=== PATIENT | male | born 1975 | race Hispanic/Latino ===

== ENCOUNTER → 2024-06-16 10:26 | Outpatient (CLI) | payer OTHER, SELFPAY ==
[2024-06-16 18:48] LABS: Add Manual Diff / Slide Review NO; Basophils Absolute Auto 0 /uL (0-100); Basophils Percent Auto 0.5 % (0-2); Eosinophils Absolute Auto 100 /uL (0-450); Eosinophils Percent Auto 1.4 % (2-4); Lymphocytes Absolute Auto 2100 /uL (1100-4500); Lymphocytes Percent Auto 28.1 % (25-40); Mean Corpuscular HGB Conc 33.3 % (30-36); Monocytes Absolute Auto 800 /uL (0-900); Monocytes Percent Auto 11.2 % (3-14); Neutrophils Absolute Auto 4400 /uL (1500-7000); Neutrophils Percent Auto 58.8 % (50-75); Platelet Count 235 X10^3/uL (150-400); Red Blood Cell Count 4.24 X10^6/uL (4.5-5.9); Red Cell Distribution Width 12.5 % (11.6-14.8); White Blood Cell Count 7.5 X10^3/uL (4.5-11.0)
[2024-06-16 18:59] LABS: Alanine Aminotransferase 33 IU/L (<50); Albumin 4.5 g/dL (3.5-5.0); Albumin Globulin Ratio 1.6 (1.0-2.8); Alkaline Phosphatase 69 U/L (38-126); Aspartate Aminotransferase 99 IU/L (17-59); BUN Creatinine Ratio 18.7 (6-22); Bilirubin Total 1.1 mg/dL (0.2-1.3); Blood Urea Nitrogen 17 mg/dL (9-20); Calcium 9.2 mg/dL (8.4-10.2); Carbon Dioxide 25 mmol/L (22-32); Chloride 105 mmol/L (98-107); Cholesterol 191 mg/dL (140-199); Estimated Glomerular Filt Rate > 60 mL/min (>60); Globulin 2.9 g/dL (1.7-4.1); Glucose 115 mg/dL (70-100); HDL Cholesterol 58 mg/dL (40-60); HEMOLYSIS 29 (0-50); LDL Cholesterol Calculated 108 mg/dL (<100); Potassium 4.2 mmol/L (3.4-5.1); Sodium 138 mmol/L (137-145); Total Protein 7.4 g/dL (6.3-8.2); Triglycerides 127 mg/dL (35-150)
[2024-06-16 19:24] LABS: Thyroid Stimulating Hormone 0.835 uIU/mL (0.47-4.68)
== END ==
PROVIDERS: PCP Family Medicine; Visit Provider Family Medicine
DX: Z13.6 Encounter for screening for cardiovascular disorders (principal); Z13.29 Encounter for screening for other suspected endocrine disorder; Z13.0 Encounter for screening for diseases of the blood and blood-forming organs and certain disorders involving the immune mechanism; Z13.1 Encounter for screening for diabetes mellitus
CPT/HCPCS: 80053; 80061; 84443; 85025

== ENCOUNTER 2024-07-27 08:42 | Day surgery (SDC) | payer OTHER, SELFPAY ==
[2024-07-27 09:26] VITALS: BP 129/80; PULSE 58; RESP 16; TEMP 36.1; O2SAT 99
[2024-07-27] MEDS: LACTATED RINGERS 1,000 ML 42 ML IV (09:36)
--- NOTE | 2024-07-27 09:36 | PM.HP.IH.1 ---
History of Present Illness History of Present Illness Date Patient Seen: 07/27/24 Chief complaint: Screening Colonoscopy [facility] Medical History (Updated 06/30/24 @ 16:51 by Nichole Haider MD) Seasonal allergies Alcohol use Preglaucoma Elevated blood pressure reading Surgical History (Updated 06/12/24 @ 18:15 by Renee Sher) Anesthesia S/P appy (~2004) Family History (Updated 06/12/24 @ 18:16 by Renee Sher) Father Lymphoma Cancer Diabetes mellitus Mother Lung cancer Social History Smoking Status: Never smoker alcohol intake: current additional social history: OI: 1 yr from [employer] tob: none 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 exercise: not currently PMHX: elevated BPs in the past preglaucoma* eye exam* 6 months ago -- just monitoring allergies PSHx: appy in his 20s ALL: none MEDS: none FHX: GF with CVA 2 sisters -NA cancer: mom stage 4 lung cancer -- in remission dad -- lymphoma/ bone cancer dad-- DM2, glaucoma last Td in 2020 due to dog bite 05/2024 Meds Home Medications and Allergies Home Medications Medication Instructions Recorded Confirmed Type sodium,potassium,mag sulfates 17.5 See Rx Instructions PO .COMPLEX 06/24/24 06/30/24 Rx gram-3.13 gram-1.6 gram oral soln #354 mL (Suprep Bowel Prep Kit) Allergies Allergy/AdvReac Type Severity Reaction Status Date / Time No Known Drug Allergies Allergy Verified 07/27/24 09:20 Exam Vital Signs (past 8 hours): - 07/27/24 09:26 Temperature 97.0 F L Pulse Rate 58 L Respiratory Rate 16 Blood Pressure 129/80 Pulse Oximetry 99 Oxygen Delivery Method Room Air Oxygen Delivery Method Room Air Narrative Exam Narrative: Oropharynx free of lesions Chest clear to auscultation percussion Cardiac exam reveals no S3 or murmur Assessment & Plan Assessment & Plan narrative: For screening colonoscopy. Risks, benefits, alternatives have been explained. Time-Based Coding :: [TOTAL MINUTES] spent with patient and on the chart (including review of chart, obtaining history, exam, reviewing outside data, placing orders, documenting exam and treatment plan, and counseling patient) on [DATE]. [employer] Document charge(s): No
--- NOTE | 2024-07-27 09:37 | PM.OP.COLON ---
Operative Date/Time/Diagnoses Date of procedure: 07/27/24 Time of procedure: 10:45 Pre-op diagnosis: See indication and findings Post-op diagnosis: same Procedure & Clinicians Same procedure as scheduled: Yes Indications: For screening colonoscopy Surgeon: Beena Quinones Procedure Notes Procedure in detail: After informed consent was obtained the patient was placed in left lateral decubitus position. The video colonoscope was introduced the rectum slowly advanced cecum. Preparation was good. On slow withdrawal mucosa was carefully examined. The scope was removed. The patient tolerated procedure well. Blood loss none Complications none Sedation mac Findings 1. Normal colonoscopy to cecum Patient should have follow-up colonoscopy in 10 years
[2024-07-27 10:48] VITALS: BP 123/72; PULSE 83; RESP 20; TEMP 36.3; O2SAT 95
[2024-07-27 11:00] VITALS: BP 120/82; PULSE 76; RESP 14; TEMP 36.1; O2SAT 94
== END 2024-07-27 11:11 | disposition home or self-care (01) ==
PROVIDERS: PCP Family Medicine; Referring Provider Internal Medicine Gastroenterology; Visit Provider Internal Medicine Gastroenterology
PROC: 0DJD8ZZ Inspection of Lower Intestinal Tract, Via Natural or Artificial Opening Endoscopic (ICD-10-PCS; CPT 45378; principal; 2024-07-27 10:00)
DX: Z12.11 Encounter for screening for malignant neoplasm of colon (principal)
CPT/HCPCS: 45378; J2405; J2704

== ENCOUNTER → 2024-11-20 11:23 | Outpatient (CLI) | payer OTHER, SELFPAY ==
--- NOTE | 2024-11-20 11:26 | DI.US.S_ITS ---
PROCEDURE: US EXTREMITY NONVASC LOWER RT INDICATIONS: fb in R medial thigh with swelling TECHNIQUE: Real-time scanning was performed of the right thigh , with image documentation. COMPARISON: None. FINDINGS: Targeted ultrasound at the area of clinical concern at the posterior right thigh. There is a linear echogenic foreign body measuring approximately 3 cm. This is located 0.7 cm to the skin. IMPRESSION: Right posterior thigh linear foreign body measuring 3 cm. Dictated by: Jerad Green M.D. on 11/20/2024 at 20:48 Approved by: Jerad Green M.D. on 11/20/2024 at 20:50
== END ==
PROVIDERS: PCP Family Medicine; Referring Provider Physician Assistant Medical; Visit Provider Physician Assistant Medical
DX: M79.5 Residual foreign body in soft tissue (principal)
CPT/HCPCS: 76882

== ENCOUNTER → 2025-01-11 14:01 | Outpatient (CLI) | payer OTHER, SELFPAY ==
[2025-01-11 19:00] LABS: HEMOLYSIS < 15 (0-50); Iron 164 ug/dL (49-181)
[2025-01-11 19:01] LABS: Alanine Aminotransferase 26 IU/L (<50); Albumin 4.2 g/dL (3.5-5.0); Albumin Globulin Ratio 1.4 (1.0-2.8); Alkaline Phosphatase 80 U/L (38-126); Globulin 3.0 g/dL (1.7-4.1); HEMOLYSIS < 15 (0-50); Total Protein 7.2 g/dL (6.3-8.2)
[2025-01-11 19:06] LABS: Hemoglobin A1C% w Est Avg Glu 5.0 % (4.0-6.0)
[2025-01-11 19:20] LABS: Percent Iron Saturation 57 % (20-50); Total Iron Binding Capacity 290 ug/dL (261-462); Transferrin 254 mg/dL (206-381)
[2025-01-11 19:34] LABS: Ferritin 173 ng/mL (18-464)
[2025-01-12 02:07] LABS: Hepatitis A Antibody IgM Negative (Negative); Hepatitis B Core Antibody IgM Negative (Negative); Hepatitis C Antibody Non Reactive (Non Reactive)
== END ==
PROVIDERS: PCP Family Medicine; Visit Provider Family Medicine
DX: R74.01 Elevation of levels of liver transaminase levels (principal); Z78.9 Other specified health status; R73.01 Impaired fasting glucose
CPT/HCPCS: 80074; 80076; 82390; 82728; 83036; 83540; 83550